=== PATIENT | female | born 1960 | race Caucasian/White ===

== ENCOUNTER 2020-12-15 12:14 | Outpatient (REF) | payer OTHER, SELFPAY ==
[2020-12-15 14:35] LABS: Anion Gap 16 (12-20); Blood Urea Nitrogen 16 mg/dL (9-16); Calcium 10.5 mg/dL (8.4-10.2); Carbon Dioxide 22 mmol/L (22-29); Chloride 103 mmol/L (96-108); Estimated Glomerular Filt Rate > 60; Glucose Random 227 mg/dL (60-115); Potassium 4.4 mmol/L (3.3-5.1); Sodium 137 mmol/L (135-145)
== END 2020-12-15 12:15 | disposition home or self-care (01) ==
LOC: HO.WFDLDS 12:14
PROVIDERS: Visit Provider Family Medicine
DX: Z00.00 Encounter for general adult medical examination without abnormal findings (principal); J32.2 Chronic ethmoidal sinusitis
CPT/HCPCS: 36415; 80048

== ENCOUNTER 2021-04-17 12:59 | Outpatient (REF) | payer OTHER, SELFPAY ==
[2021-04-17 14:31] LABS: Estimated Average Glucose 174 mg/dL; Hemoglobin A1c % 7.7 %
== END 2021-04-17 13:00 | disposition home or self-care (01) ==
LOC: HO.10HDL 12:59
PROVIDERS: Visit Provider Family Medicine
DX: M65.342 Trigger finger, left ring finger (principal); R73.01 Impaired fasting glucose
CPT/HCPCS: 20550; 36415; 83036; 99202; J1100

== ENCOUNTER → 2021-06-06 08:36 | Outpatient (BNVA) | payer OTHER, SELFPAY | PROVIDERS: PCP Family Medicine; Visit Provider Orthopaedic Surgery | DX: M65.342 Trigger finger, left ring finger (principal); R20.0 Anesthesia of skin; R20.2 Paresthesia of skin | CPT/HCPCS: 99212 ==

== ENCOUNTER 2021-07-02 12:06 | Day surgery (SDC) | payer OTHER, SELFPAY ==
[2021-07-02 12:20] VITALS: BMI 27.1
[2021-07-02 12:26] VITALS: BP 138/71; PULSE 78; RESP 16; TEMP 36.6; O2SAT 100
--- NOTE | 2021-07-02 12:41 | P.OP_ITS ---
Operative Note Operative Note Date of Service: 07/02/21 Narrative: Operative Note Preop diagnosis: 1. left ring finger Trigger finger Postop diagnosis: 1. left ring finger Trigger finger Procedure: 1. left ring finger A1 magalys release Surgeon: Vanessa Monge MD Anesthesia: local block using 1% lidocaine with epinephrine Findings: No locking or catching after A1 magalys release EBL: Less than 5 mL Tourniquet time: None Specimens: None Complications: None Disposition: Brought to recovery room in stable condition Plan: Follow-up for 10-14 days for wound check and suture removal Indications: The patient is 60 years old, with a left ring finger trigger finger that has been unresponsive to nonoperative management. The risks and benefits of operative treatment including but not limited to risk of damage to blood vessels, nerves, tendons, infection, persistent pain, persistent symptoms, recurrence or possible need for additional surgery were discussed with the patient and the patient wishes to proceed with surgery. Procedure: Once consent was obtained a local block was performed in the preop area using a combination of 1% lidocaine with epinephrine. The patient was then brought back to the operating suite and placed on the operative table in supine position. A tourniquet was applied to the proximal aspect of the left upper extremity and the limb was prepped and draped in a standard surgical fashion. Once assured that we had a good block, a 1.5 cm oblique incision was made centered over the A1 magalys of the left ring finger . The incision was made through the skin to the subcutaneous tissues using a #15 blade. Careful dissection was made down to the level of the A1 magalys using tenotomy scissors, with care being taken to protect the nearby neurovascular structures. A longitudinal incision was made in the A1 magalys 1st using a #15 blade, then using tenotomy scissors under direct visualization. The A1 magalys was noted to be thickened. Following our A1 magalys release, we no longer saw any locking or catching of the digit with flexion and extension. Once satisfied with our A1 magalys release the wound was copiously irrigated with normal saline and hemostasis was obtained with a brief period of local pressure. The skin edges were reapproximated with some 5.0 nylon suture material and a sterile dressing was applied. The patient appears to have tolerated the procedure well and with no complica tions. All digits were well vascularized at the conclusion of the case.
--- NOTE | 2021-07-02 12:41 | MHC.SHP ---
Pre-Procedural Eval Section A Date of Service: 07/02/21 The patient is an INPATIENT: No Changes since office visit: No Cold of Flu in the past 2 weeks, No New Medical Problems, No Changes in Medication and No Patient answered all questions The History & Physical has been completed within 30 days and I have reviewed it.: Yes Section B Chief Complaint: trigger finger Allergies: Allergies Allergy/AdvReac Type Severity Reaction Status Date / Time Penicillins Allergy Severe Rash, Hives Verified 07/02/21 12:31 Plan I have reviewed the history and physical and performed a pertinent physical examination on my patient. No changes have occurred unless specified.
== END 2021-07-02 14:17 ==
LOC: HO.SSS 12:08
PROVIDERS: PCP Family Medicine; Visit Provider Orthopaedic Surgery
PROC: (CPT 26055; principal; 2021-07-02 15:00)
DX: M65.342 Trigger finger, left ring finger (principal); E11.9 Type 2 diabetes mellitus without complications; Z79.84 Long term (current) use of oral hypoglycemic drugs; Z88.0 Allergy status to penicillin; Z96.649 Presence of unspecified artificial hip joint; Z87.891 Personal history of nicotine dependence
CPT/HCPCS: 26055

== ENCOUNTER → 2021-07-17 14:17 | Outpatient (BNVA) | payer OTHER, SELFPAY | PROVIDERS: PCP Family Medicine; Visit Provider Orthopaedic Surgery | DX: Z47.89 Encounter for other orthopedic aftercare (principal); R20.0 Anesthesia of skin; R20.2 Paresthesia of skin | CPT/HCPCS: 99212 ==

== ENCOUNTER 2021-08-14 07:57 | Outpatient (REF) | payer OTHER, SELFPAY ==
[2021-08-14 08:49] LABS: Estimated Average Glucose 171 mg/dL; Hemoglobin A1c % 7.6 %
[2021-08-14 09:09] LABS: Alanine Aminotransferase 25 U/L (0-31); Albumin Level 4.4 g/dL (3.5-5.0); Alkaline Phosphatase 66 U/L (39-117); Anion Gap 14 (12-20); Aspartate Amino Transferase 19 U/L (5-31); Bilirubin Total 0.4 mg/dL (0.0-1.0); Blood Urea Nitrogen 12 mg/dL (9-16); Calcium 9.5 mg/dL (8.4-10.2); Carbon Dioxide 22 mmol/L (22-29); Chloride 108 mmol/L (96-108); Estimated Glomerular Filt Rate > 60; Glucose Fasting 158 mg/dL (60-99); Potassium 4.4 mmol/L (3.3-5.1); Sodium 140 mmol/L (135-145); Total Protein 6.9 g/dL (6.5-8.0)
[2021-08-15 15:26] LABS: Microalbum/Creatinine Ratio Ur 9.1 ug/mg cr
== END 2021-08-14 07:58 | disposition home or self-care (01) ==
LOC: HO.LAB 07:57
PROVIDERS: PCP Family Medicine; Visit Provider Family Medicine
DX: Z00.00 Encounter for general adult medical examination without abnormal findings (principal); R73.01 Impaired fasting glucose
CPT/HCPCS: 36415; 80053; 83036

== ENCOUNTER 2021-08-15 | Outpatient (REF) | payer OTHER, SELFPAY ==
[2021-08-20 16:28] LABS: Microalbum/Creatinine Ratio Ur 9.1 ug/mg cr
== END 2021-08-15 00:01 | disposition home or self-care (01) ==
LOC: HO.LNP
PROVIDERS: Visit Provider Family Medicine
DX: I10 Essential (primary) hypertension (principal)
CPT/HCPCS: 82043

== ENCOUNTER → 2022-10-23 14:36 | Outpatient (BNVA) | payer OTHER, SELFPAY | PROVIDERS: PCP Family Medicine; Visit Provider Physician Assistant | DX: M65.341 Trigger finger, right ring finger (principal); E11.9 Type 2 diabetes mellitus without complications | CPT/HCPCS: 20550; 99212; J1100 ==